=== PATIENT | male | born 1995 | race Caucasian/White ===

== ENCOUNTER 2023-10-06 08:41 | Emergency (ER) | payer BC ==
[2023-10-06] MEDS ORDERED: MORPHINE 4 MG/ML SYR ONE (09:09)
[2023-10-06] MEDS ORDERED: NA CHLORIDE 0.9% 1,000 ML ONE (09:10)
[2023-10-06] MEDS ORDERED: ONDANSETRON 4 MG/2 ML VIAL ONE (09:10)
--- NOTE | 2023-10-06 09:23 | RAD REPORT ---
EXAM DESCRIPTION: CT - Stone Protocol - 10/06/2023 9:12 am CLINICAL HISTORY: Flank pain. Pain;Nausea / vomiting COMPARISON: Abdomen Pelvis W Contrast dated 09/25/2016 TECHNIQUE: Axial images were obtained without oral or IV contrast. Lack of contrast limits solid org an and vascular assessment. The [id number] spans the entirety of the system partially obscuring uppermost abdomen and lung bases. Coronal reformatted images were obtained and reviewed. All CT scans are performed using dose optimization technique as appropriate and may include automated exposure control or mA/KV adjustment according to patient size. FINDINGS: The lower lung zaragoza are clear. Mild fatty liver. The spleen is normal in size. The pancreas and adrenal glands are normal. No pathol ogic lymphadenopathy in the abdomen or pelvis. No urinary tract stones or obstructive uropathy. No bowel obstruction, free air, free fluid or abscess. Appendectomy.Sigmoid diverticulosis without di verticulitis. No significant bony abnormality. IMPRESSION: No urinary tract stones or obstructive uropathy. Mild fatty liver.
[2023-10-06 09:28] LABS: Albumin 4.1 g/dL (3.4-5.0); Bilirubin Total 0.4 mg/dL (0.2-1.0); Potassium 3.8 mEq/L (3.5-5.1); Protein, Total 8.6 g/dL (6.4-8.2)
[2023-10-06 09:31] LABS: Absolute Lymphocytes (CBC) 1.9 K/uL (0.7-4.9); Hematocrit 43.3 % (39.6-49.0); Lymphocytes % 16.3 % (15.3-44.8); MCV 79.5 fL (80-100); MPV 7.2 fL (7.6-11.3); Platelets 440 thou/uL (152-406); RBC Red Blood Cell Count 5.45 M/uL (4.33-5.43)
[2023-10-06] MEDS ORDERED: KETOROLAC 30 MG/ML INJ ONE (09:35)
[2023-10-06 10:13] LABS: Specific Gravity 1.023 (1.005-1.030); Urine Bilirubin NEGATIVE (Negative); Urine Blood Negative (Negative); Urine Clarity Clear (Clear); Urine Color Light-Yellow (Yellow); Urine Glucose NEGATIVE (Negative); Urine Protein NEGATIVE (Negative); Urine Urobilinogen Normal (Normal); Urine pH 5.5 (5.0-7.0)
[2023-10-06] MEDS ORDERED: dexAMETHasone 10 MG/ML VIAL ONE (10:33)
--- NOTE | 2023-10-06 10:46 | ER ---
Nurse's Notes [facility] Name: Bob Aguirre Age: 28 yrs Sex: Male : 1995 Arrival Date: 10/06/2023 Time: 08:41 Bed 20 Private MD: Diagnosis: Coccydynia Presentation: 10/06 08:50 Chief complaint: Patient states: Low back pain started yesterday, got worse today. No ll1 trauma/falls. Drove himself here. Coronavirus screen: Client denies travel out of the [place] in the last 14 days. At this time, the client does not indicate any symptoms associated with coronavirus-19. Ebola Screen: Patient denies travel to an Ebola-affected area in the 21 days before illness onset. Initial Sepsis Screen: Does the patient meet any 2 criteria? No. Patient's initial sepsis screen is negative. Does the patient have a suspected source of infection? Yes: Bone or joint infection. Risk Assessment: Do you want to hurt yourself or someone else? Patient reports no desire to harm self or others. Onset of symptoms was October 05, 2023. 08:50 Method Of Arrival: Wheelchair ll1 08:50 Acuity: GABREILE 3 ll1 Historical: - Allergies: 08:49 No Known Allergies; ll1 - PMHx: 08:49 belly button infections; ll1 - PSHx: 08:49 Appendectomy; knee SX; ll1 - Immunization history:: Adult Immunizations up to date. - Social history:: Smoking status: Patient denies any tobacco usage or history of. Screenin:45 [facility] ED Fall Risk Assessment (Adult) History of falling in the last 3 months, aa5 including since admission No falls in past 3 months (0 pts) Confusion or Disorientation No (0 pts) Intoxicated or Sedated No (0 pts) Impaired Gait Yes (1 pt) Mobility Assist Device Used Yes (1 pt) Altered Elimination No (0 pt) Score/Fall Risk Level 0 - 2 = Low Risk Oriented to surroundings, Maintained a safe environment. Abuse screen: Denies threats or abuse. Nutritional screening: No deficits noted. Tuberculosis screening: No symptoms or risk factors identified. Assessment: 08:45 General: Appears distressed, uncomfortable, Behavior is cooperative, agitated. Pain: rs5 Complains of pain in lower back Pain radiates to sacrum Pain currently is 10 out of 10 on a pain scale. Quality of pain is described as aching, Pain began 1 day ago. Is continuous, Aggravated by repositioning, weight bearing, Noted to be grimacing, guarding, moaning. Neuro: Level of Consciousness is awake, alert, obeys commands, Oriented to person, place, time, situation. Cardiovascular: Heart tones S1 S2 present Rhythm is regular. Respiratory: Airway is patent Respiratory effort is even, unlabored, Respiratory pattern is regular, symmetrical, Breath sounds are clear bilaterally. GI: Abdomen is round non-distended, Bowel sounds present X 4 quads. Abd is soft and non tender X 4 quads. : No signs and/or symptoms were reported regarding the genitourinary system. EENT: No signs and/or symptoms were reported regarding the EENT system. Derm: Skin is intact, Skin is pink, warm \T\ dry. Musculoskeletal: Range of motion: limited in lower extremitites bilat Pt denies recent falls and reports pain began suddenly while sitting on a couch yesterday, worse toay. 08:56 Reassessment: To bedside for med adm. rs5 09:20 Reassessment: Reassessment: Provider notified pt is experiencing pain . Pain: Complains rs5 of pain in lower back Pain radiates to sacrum Pain currently is 6 out of 10 on a pain scale. Quality of pain is described as aching, Is continuous, Noted to be grimacing. 10:35 Reassessment: Patient and/or family updated on plan of care and expected duration. Pain rs5 level reassessed. Patient is alert, oriented x 3, equal unlabored respirations, skin warm/dry/pink. Pain:. Vital Signs: 08:45 BP 160 / 110; Pulse 90; Resp 24; Pulse Ox 99% on R/A; aa5 08:50 Pulse 89; Resp 22; Temp 97.8; Pulse Ox 100% ; Weight 136.08 kg; Height 6 ft. 1 in. ; ll1 Pain 8/10; 09:20 BP 144 / 91; Pulse 77; Resp 18; Pulse Ox 99% on R/A; rs5 08:50 Body Mass Index 39.58 (136.08 kg, 185.42 cm) ll1 08:50 Pain Scale: Adult ll1 ED Course: 08:42 Patient arrived in ED. im 08:43 [facility]eno [facility] jh7 08:43 Henri Lange MD is Attending Physician. 7 08:45 Patient has correct armband on for positive identification. Bed in low position. Call aa5 light in reach. Side rails up X2. 08:49 Arm band placed on Patient placed in an exam room, on a stretcher. ll1 08:51 Triage completed. ll1 09:01 CBC with Diff Sent. bc6 09:01 CMP Sent. bc6 09:01 Lipase Sent. bc6 09:02 Inserted saline lock: 20 gauge in right antecubital area, using aseptic technique. 6 Blood collected. 09:04 Nessa Cordova, RN is Primary Nurse. aa5 09:12 CT Stone Protocol In Process Unspecified. EDMS 10:34 Audie Justice, RN is Primary Nurse. rs5 Administered Medications: 08:58 Drug: NS 0.9% IV 1000 ml IV at 1 bolus Per protocol; 1000 mL bolus Route: IV; Rate: 1 rs5 bolus; Site: right antecubital; 08:58 Drug: Ondansetron IVP 4 mg IVP once; over 2 minutes Route: IVP; Site: right antecubital;rs5 08:58 Drug: morphine IVP or IV 4 mg IVP once over 4 mins Route: IVP; Infused Over: 4 mins; rs5 Site: right antecubital; 09:20 Drug: Decadron - Dexamethasone IVP 10 mg IVP once Route: IVP; Site: right antecubital; rs5 09:25 Drug: Ketorolac IVP 30 mg IVP once Route: IVP; Site: right antecubital; rs5 Outcome: 10:45 Discharge ordered by . 7 11:12 Patient left the ED. rs5 Signatures: Dispatcher [employer] EDMS Nessa Cordova RN RN aa5 Abraham Licona RN RN ll1 Elisa Centeno FNP [employer] ANALYST 7 Audie Justice, ELIZABETH JOHNSON rs5 Bronwyn Tobias 6 Rosario Wallace Corrections: (The following items were deleted from the chart) 10:44 08:58 morphine IVP or IV 4 mg IVP in right antecubital over 4 mins aa5 rs5 : 08:58 Ondansetron IVP 4 mg IVP in right antecubital aa5 rs5 : 08:58 NS 0.9% IV 1000 ml IV at 1 bolus in right antecubital aa5 rs5 : 08:45 General: Appears distressed, uncomfortable, Behavior is cooperative, agitated, aa5rs5 : 08:45 Pain: Complains of pain in lower back Pain radiates to sacrum Pain currently is rs5 10 out of 10 on a pain scale. Quality of pain is described as aching, Pain began 1 day ago. Is continuous, Aggravated by repositioning, weight bearing, Noted to be grimacing, guarding, moaning, aa5 08:45 Neuro: Level of Consciousness is awake, alert, obeys commands, Oriented to rs5 person, place, time, situation, aa5 08:45 Cardiovascular: Heart tones S1 S2 present Rhythm is regular aa5 rs5 08:45 Respiratory: Airway is patent Respiratory effort is even, unlabored, Respiratory rs5 pattern is regular, symmetrical, Breath sounds are clear bilaterally. aa5 : 08:45 GI: Abdomen is round non-distended, Bowel sounds present X 4 quads. Abd is soft rs5 and non tender X 4 quads. aa5 : 08:45 : No signs and/or symptoms were reported regarding the genitourinary system. aa5rs5 : 08:45 EENT: No signs and/or symptoms were reported regarding the EENT system. aa5 rs5 : 08:45 Derm: Skin is intact, Skin is pink, warm \T\ dry. aa5 rs5 : 08:45 Musculoskeletal: Range of motion: limited in lower extremitites bilat Pt denies rs5 recent falls and reports pain began suddenly while sitting on a couch yesterday, worse toay aa5 : 08:45 Reassessment: Provider notified pt is experiencing pain. aa5 rs5 : 08:56 Reassessment: To bedside for med adm. aa5 rs5 09:20 Pain: Complains of pain in lower back Pain radiates to sacrum Pain currently is 6 rs5 out of 10 on a pain scale. Quality of pain is described as aching, Is continuous, Noted to be grimacing, aa5 10:44 09:20 Reassessment: Provider notified pt is experiencing pain . Reassessment: Provider rs5 notified pt is experiencing pain . aa5 10:47 09:25 Ketorolac IVP 30 mg IVP in right antecubital aa5 rs5
--- NOTE | 2023-10-06 10:46 | EDPHYS ---
Physician Documentation [facility] Name: Bob Aguirre Age: 28 yrs Sex: Male : 1995 Arrival Date: 10/06/2023 Time: 08:41 Bed 20 Private MD: ED Physician Henri Lange HPI: 10/06 08:50 This 28 yrs old Male presents to ER via Wheelchair with complaints of Low Back Pain. jh7 08:50 The patient presents with pain that is acute, with no known mechanism of injury. The jh7 symptoms are located in the coccyx area. The pain does not radiate. The problem was sustained from unknown cause. Onset: The symptoms/episode began/occurred yesterday. Modifying factors: the patient symptoms are aggravated by any movement. Associated signs and symptoms: Pertinent positives: nausea, Pertinent negatives: dysuria, fever, headache, incontinence, numbness, tingling, urinary retention, vomiting. Historical: - Allergies: 08:49 No Known Allergies; ll1 - PMHx: 08:49 belly button infections; ll1 - PSHx: 08:49 Appendectomy; knee SX; ll1 - Immunization history:: Adult Immunizations up to date. - Social history:: Smoking status: Patient denies any tobacco usage or history of. ROS: 08:50 Constitutional: Negative for fever, chills, and weight loss, Eyes: Negative for injury, jh7 pain, redness, and discharge, Neck: Negative for injury, pain, and swelling, Cardiovascular: Negative for chest pain, palpitations, and edema, Respiratory: Negative for shortness of breath, cough, wheezing, and pleuritic chest pain, Abdomen/GI: Negative for abdominal pain, nausea, vomiting, diarrhea, and constipation, MS/Extremity: Negative for injury and deformity, Skin: Negative for injury, rash, and discoloration, Neuro: Negative for headache, weakness, numbness, tingling, and seizure, 08:50 Back: Positive for decreased range of motion, pain at rest, pain with movement, Negative for injury or acute deformity, 08:50 All other systems are negative, Exam: 08:50 Head/Face: Normocephalic, atraumatic. Neck: Trachea midline, no thyromegaly or masses jh7 palpated, and no cervical lymphadenopathy. Supple, full range of motion without nuchal rigidity, or vertebral point tenderness. No Meningismus. Cardiovascular: Regular rate and rhythm with a normal S1 and S2. No gallops, murmurs, or rubs. Normal PMI, no JVD. No pulse deficits. Respiratory: Lungs have equal breath sounds bilaterally, clear to auscultation and percussion. No rales, rhonchi or wheezes noted. No increased work of breathing, no retractions or nasal flaring. Abdomen/GI: Soft, non-tender, with normal bowel sounds. No distension or tympany. No guarding or rebound. No evidence of tenderness throughout. Skin: Warm, dry with normal turgor. Normal color with no rashes, no lesions, and no evidence of cellulitis. MS/ Extremity: Pulses equal, no cyanosis. Neurovascular intact. Full, normal range of motion. Neuro: Awake and alert, GCS 15, oriented to person, place, time, and situation. 08:50 Constitutional: The patient appears alert, awake, in obvious distress, moderately distressed, in obvious pain, 08:50 Back: pain, that is severe, of the sacrum, ROM is painful, with all movement, normal spinal alignment noted, Vital Signs: 08:45 BP 160 / 110; Pulse 90; Resp 24; Pulse Ox 99% on R/A; aa5 08:50 Pulse 89; Resp 22; Temp 97.8; Pulse Ox 100% ; Weight 136.08 kg; Height 6 ft. 1 in. ; ll1 Pain 8/10; 09:20 BP 144 / 91; Pulse 77; Resp 18; Pulse Ox 99% on R/A; rs5 08:50 Body Mass Index 39.58 (136.08 kg, 185.42 cm) ll1 08:50 Pain Scale: Adult ll1 MDM: 08:43 Patient medically screened. [facility] 10:50 Differential diagnosis: arthritis, strain, sciatica, Herniated disc Kidney stones. Data [facility] reviewed: vital signs, nurses notes, lab test result(s), radiologic studies, CT scan. I considered the following discharge prescriptions or medication management in the emergency department Medications were administered in the Emergency Department. See MAR. Counseling: I had a detailed discussion with the patient and/or guardian regarding the historical points, exam findings, and any diagnostic results supporting the discharge/admit diagnosis, the need for outpatient follow up, Ortho/spine, to return to the emergency department if symptoms worsen or persist or if there are any questions or concerns that arise at home. Response to treatment: the patient's symptoms have mildly improved after treatment. ED course: The patient stated that he has a family history of back problems and herniated disc. Although he denied any injury, the patient is morbidly obese and states that he sits down all the time. Discussed following up with Ortho/spine, stretching, and weight loss.. 10/06 08:50 Order name: CBC with Diff; Complete Time: 09:34 [facility] 10/06 08:50 Order name: CMP; Complete Time: :34 [facility] 10/06 08:50 Order name: Lipase; Complete Time: : [facility] 10/06 08:50 Order name: Urinalysis w/ reflexes; Complete Time: 10:19 [facility] 10/06 08:50 Order name: CT Stone Protocol; Complete Time: 09:24 [facility] 10/06 08:50 Order name: IV Saline Lock; Complete Time: 09: [facility] 10/06 08:50 Order name: Labs collected and sent; Complete Time: 09: [facility] 10/06 10:19 Order name: Recheck Vital Signs; Complete Time: 10:34 [facility] Administered Medications: 08:58 Drug: NS 0.9% IV 1000 ml IV at 1 bolus Per protocol; 1000 mL bolus Route: IV; Rate: 1 rs5 bolus; Site: right antecubital; 08:58 Drug: Ondansetron IVP 4 mg IVP once; over 2 minutes Route: IVP; Site: right antecubital;rs5 08:58 Drug: morphine IVP or IV 4 mg IVP once over 4 mins Route: IVP; Infused Over: 4 mins; rs5 Site: right antecubital; 09:20 Drug: Decadron - Dexamethasone IVP 10 mg IVP once Route: IVP; Site: right antecubital; rs5 09:25 Drug: Ketorolac IVP 30 mg IVP once Route: IVP; Site: right antecubital; rs5 Disposition: 17:21 Co-signature as Attending Physician, Henri Lange MD I reviewed the patient's care rn provided by the Advanced Practice Provider and agree with the diagnosis and treatment plan. Disposition Summary: 10/06/23 10:45 Discharge Ordered Notes: Location: Home [facility] Problem: new [facility] Symptoms: have improved [facility] Condition: Stable [facility] Diagnosis - Coccydynia [facility] Followup: [facility] - With: Private Physician - When: 2 - 3 days - Reason: Recheck today's complaints Discharge Instructions: - Discharge Summary Sheet [facility] - Acute Back Pain, Adult [facility] Forms: - Medication Reconciliation Form [facility] - Thank You Letter [facility] - Patient Portal Instructions [facility] - Leadership Thank You Letter [facility] Prescriptions: - Zanaflex 4 mg Oral Tablet - take 1 tablet ORAL route every 8 hours As needed; 20 tablet; Refills: 0, [facility] Product Selection Permitted - Medrol (Luis) 4 mg Oral Tablets, Dose Pack - take 1 tablet ORAL route as directed - follow package instructions; 1 packet; [facility] Refills: 0, Product Selection Permitted Signatures: Dispatcher [employer] Henri Polk MD MD rn Calderon, Audri RN RN aa5 Abraham Licona RN RN ll1 Elisa Centeno, [employer] [place] [id number] Audie Justice, RN RN rs5
[2023-10-06 11:18] VITALS: TEMP 97.8
[2023-10-06 11:20] VITALS: BP 144/91; O2SAT 99
== END 2023-10-06 11:12 | disposition home or self-care (01) ==
LOC: ER 08:41
DX: M53.3 Sacrococcygeal disorders, not elsewhere classified (principal)
CPT/HCPCS: 85025; 36415; 81003; 83690; 80053; 76377; 74176; 96375; 96374; 99284; J1100; J2405; J7030

== ENCOUNTER → 2023-11-19 | Emergency (ER) | payer BC ==
[~2023-11-19] MED LIST: dexAMETHasone 10 MG/ML VIAL ONE
--- NOTE | 2023-11-19 16:57 | RAD REPORT ---
EXAM DESCRIPTION: Brad Single View11/19/2023 4:42 pm CLINICAL HISTORY: cough COMPARISON: none FINDINGS: The lungs appear clear of acute infiltrate. The heart is normal size IMPRESSION: No acute abnormalities displayed
--- NOTE | 2023-11-19 17:10 | ER ---
Nurse's Notes [facility] Name: Bob Aguirre Age: 28 yrs Sex: Male : 1995 Arrival Date: 11/19/2023 Time: 15:44 Bed 12 Private MD: Diagnosis: SARS-associated coronavirus as the cause of diseases classified elsewhere Presentation: 11/19 15:57 Chief complaint: Patient states: CONGESTION AFTER COVID +. Coronavirus screen: Client bp reports previous positive COVID test result. Ebola Screen: No symptoms or risks identified at this time. Initial Sepsis Screen: Does the patient meet any 2 criteria? HR > 90 bpm. No. Patient's initial sepsis screen is negative. Does the patient have a suspected source of infection? No. Patient's initial sepsis screen is negative. Risk Assessment: Do you want to hurt yourself or someone else? Patient reports no desire to harm self or others. Onset of symptoms is unknown. 15:57 Method Of Arrival: Ambulatory bp 15:57 Acuity: GABRIELE 4 bp Triage Assessment: 15:58 General: Appears distressed, obese, Behavior is cooperative, appropriate for age, bp anxious. Pain: Denies pain. Historical: - Allergies: 15:58 No Known Allergies; bp - PMHx: 15:58 belly button infections; bp - PSHx: 15:58 knee sx; Appendectomy; bp - Immunization history:: Adult Immunizations up to date. - Social history:: Smoking status: Patient denies any tobacco usage or history of. Screenin:11 [facility] ED Fall Risk Assessment (Adult) History of falling in the last 3 months, ld1 including since admission No falls in past 3 months (0 pts). Abuse screen: Denies threats or abuse. Denies injuries from another. Nutritional screening: No deficits noted. Tuberculosis screening: No symptoms or risk factors identified. Assessment: 16:10 General: Appears in no apparent distress. comfortable, Behavior is calm, cooperative, ld1 appropriate for age. Pain: Denies pain. Neuro: Level of Consciousness is awake, alert, obeys commands, Oriented to person, place, time, situation. Cardiovascular: Capillary refill < 3 seconds Patient's skin is warm and dry. Respiratory: Airway is patent Respiratory effort is even, unlabored. Respiratory: Reports cough that is non-productive. GI: Abdomen is round obese. : No signs and/or symptoms were reported regarding the genitourinary system. EENT: No signs and/or symptoms were reported regarding the EENT system. Derm: No signs and/or symptoms reported regarding the dermatologic system. Musculoskeletal: No signs and/or symptoms reported regarding the musculoskeletal system. Vital Signs: 15:57 BP 157 / 99; Pulse 105; Resp 20; Temp 98.2; Pulse Ox 100% ; bp 16:10 BP 148 / 91; Pulse 99; Resp 20; Pulse Ox 100% on R/A; ld1 ED Course: 15:46 Patient arrived in ED. mr 15:50 [facility]-C [facility] kb 15:50 Kurtis Islas MD is Attending Physician. kb 15:58 Triage completed. bp 15:58 Arm band placed on. bp 16:10 Tiff Trujillo, RN is Primary Nurse. ld1 16:11 Patient has correct armband on for positive identification. Bed in low position. Call ld1 light in reach. Side rails up X2. Pulse ox on. NIBP on. Door closed. Noise minimized. Warm blanket given. 16:11 No provider procedures requiring assistance completed. ld1 16:43 Chest Single View XRAY In Process Unspecified. EDMS 17:14 Patient did not have IV access during this emergency room visit. ld1 Administered Medications: 16:10 Drug: Dexamethasone IM 10 mg IM once Route: IM; Site: right deltoid; ld1 Medication: 16:11 VIS not applicable for this client. ld1 Outcome: 17:10 Discharge ordered by MD. kb 17:14 Discharged to home ambulatory, ld1 17:14 Condition: stable 17:14 Discharge instructions given to patient, Instructed on discharge instructions, follow up and referral plans. medication usage, Demonstrated understanding of instructions, follow-up care, medications, Prescriptions given X 2, 17:14 Patient left the ED. ld1 Signatures: Dispatcher [employer] EDWY Cristina James FNP-C FNP-Ckb Rivera, Mary, Reg Reg Jessee Marcos, RN RN bp Tiff Trujillo, ELIZABETH RN ld1
--- NOTE | 2023-11-19 17:11 | EDPHYS ---
Physician Documentation [facility] Name: Bob Aguirre Age: 28 yrs Sex: Male : 1995 Arrival Date: 11/19/2023 Time: 15:44 Bed 12 Private MD: ED Physician Kurtis Islas HPI: 11/19 20:11 This 28 yrs old Male presents to ER via Ambulatory with complaints of Covid+. kb 20:11 Pt reports cough, really bad congestion, and shortness of breath for 3 days. States he kb tested positive for COVID yesterday. Today was driving and felt like he couldn't catch his breath so he started panicking which caused him to come in for evaluation. Historical: - Allergies: 15:58 No Known Allergies; bp - PMHx: 15:58 belly button infections; bp - PSHx: 15:58 knee sx; Appendectomy; bp - Immunization history:: Adult Immunizations up to date. - Social history:: Smoking status: Patient denies any tobacco usage or history of. ROS: 20:06 Constitutional: Negative for fever, chills, and weight loss, kb 20:06 ENT: Positive for rhinorrhea, sinus congestion, 20:06 Respiratory: Positive for cough, shortness of breath, 20:06 All other systems are negative, Exam: 20:06 Constitutional: This is a well developed, well nourished patient who is awake, alert, kb and in no acute distress. Head/Face: Normocephalic, atraumatic. ENT: Moist Mucous membranes Cardiovascular: Regular rate Respiratory: Respirations even and unlabored. No increased work of breathing. Talking in full sentences Abdomen/GI: Soft, non-tender. No distention Skin: Warm, dry with normal turgor. Normal color. MS/ Extremity: Pulses equal, no cyanosis. Neurovascular intact. Full, normal range of motion. Neuro: Awake and alert, GCS 15, oriented to person, place, time, and situation. Moves all extremities. Normal gait. Vital Signs: 15:57 BP 157 / 99; Pulse 105; Resp 20; Temp 98.2; Pulse Ox 100% ; bp 16:10 BP 148 / 91; Pulse 99; Resp 20; Pulse Ox 100% on R/A; ld1 MDM: 15:50 Patient medically screened. kb 20:04 Differential diagnosis: bronchitis, pneumonia COVID, PE. Data reviewed: vital signs, kb nurses notes. I considered the following discharge prescriptions or medication management in the emergency department I discussed and recommended Over The Counter medications, Antibiotics: At this time antibiotics are not recommended. Test considered but Not performed: Labs: Serum labs considered including CBC, CMP and D-dimer but oxygen saturation 100% on room air, lungs clear bilaterally, respirations even and unlabored, heart rate returned to normal after patient calm and down. Counseling: I had a detailed discussion with the patient and/or guardian regarding the historical points, exam findings, and any diagnostic results supporting the discharge/admit diagnosis, radiology results, the need for outpatient follow up, a family practitioner, to return to the emergency department if symptoms worsen or persist or if there are any questions or concerns that arise at home. 11/19 15:58 Order name: Chest Single View XRAY; Complete Time: 16:57 kb Administered Medications: 16:10 Drug: Dexamethasone IM 10 mg IM once Route: IM; Site: right deltoid; ld1 Disposition Summary: 11/19/23 17:10 Discharge Ordered Notes: Location: Home kb Condition: Stable kb Diagnosis - SARS-associated coronavirus as the cause of diseases classified elsewhere kb Followup: kb - With: Emergency Department - When: As needed - Reason: Worsening of condition Followup: kb - With: Private Physician - When: 2 - 3 days - Reason: Recheck today's complaints, Continuance of care, Re-evaluation by your physician Discharge Instructions: - Discharge Summary Sheet kb - COVID-19 kb - Viral Illness, Adult kb Forms: - Medication Reconciliation Form kb - Thank You Letter kb - Antibiotic Education kb - Prescription Opioid Use kb - Patient Portal Instructions kb - Leadership Thank You Letter kb Prescriptions: - albuterol sulfate 90 mcg/actuation Inhalation HFA Aerosol Inhaler - inhale 2 puff INHALATION route every 4 to 6 hours As needed administer via kb ventilator; 1 unit; Refills: 0, Product Selection Permitted - Tessalon Perles 100 mg Oral Capsule - take 1 capsule ORAL route every 8 hours As needed; 15 capsule; Refills: 0, kb Product Selection Permitted Addendum: 11/25/2023 17:39 I was immediately available for consultation during this patient's visit. I did not e c2 personally see the patient or guide the patient's care.. Signatures: Dispatcher [employer] Cristina Verde, Jessee Cavazos RN ELIZABETH bp Tiff Trujillo RN RN ld1 Kurtis Islas MD MD ec2
[2023-11-19 18:58] VITALS: BP 148/91; TEMP 98.2; O2SAT 100
== END ==
LOC: ER 15:44
DX: U07.1 COVID-19 (principal)
CPT/HCPCS: 71045; J1100; 96372; 99284